=== PATIENT | female | born 1985 | race Caucasian/White ===

== ENCOUNTER 2018-01-21 14:36 | Emergency (ER) | payer OTHER ==
[2018-01-21 15:34] LABS: Absolute Lymphocytes (CBC) 1.8 K/uL (0.7-4.9); Absolute Monocytes 0.7 K/uL (0.1-1.3); Absolute Neutrophil 3.4 K/uL (1.8-8.0); Basophils % 0.7 % (0-1.3); Eosinophils % 6.9 % (0-4.4); Hematocrit 44.2 % (36.0-45.0); Lymphocytes % 27.8 % (15.3-44.8); MCH 29.7 pg (27.0-35.0); MCV 88.4 fL (80-100); MPV 8.4 fL (7.6-11.3); Monocytes % 10.8 % (3.3-12.3); RBC Red Blood Cell Count 5.01 M/uL (3.86-4.86)
[2018-01-21 15:45] LABS: Bicarbonate 26 mEq/L (21-31); Glucose Level 93 mg/dL (65-120); Lipase 19 U/L (22-51); Potassium 4.1 mEq/L (3.6-5.0); Sodium Level 134 mEq/L (135-145)
[2018-01-21 15:51] LABS: ALT/SGPT 14 IU/L (10-60); AST/SGOT 15 IU/L (10-42); Albumin 3.5 g/dL (3.2-5.5); Alkaline Phosphatase 41 IU/L (42-121); BUN Blood Urea Nitrogen 11 mg/dL (6-20); Bilirubin Direct 0.1 mg/dL (0-0.2); Bilirubin Total 0.7 mg/dL (0.3-1.2); Glomerular Filtration Rate > 90 mL/min (=/>90); Protein, Total 7.9 g/dL (6.0-8.3)
[2018-01-21 16:15] LABS: Urine Bacteria <20 /HPF (<20); Urine Culture Reflex Order NOT NEEDED; Urine RBC <5 /HPF (NONE SEEN)
[2018-01-21 16:35] LABS: Urine Blood NEGATIVE (NEG); Urine Glucose NEGATIVE (NEG); Urine Protein NEGATIVE (NEG); Urine Specific Gravity 1.015 (1.005-1.030)
--- NOTE | 2018-01-21 17:20 | RAD REPORT ---
EXAM DESCRIPTION: CT - Abdomen Pelvis W Contrast - 01/21/2018 5:08 pm CLINICAL HISTORY: Abdominal pain/generalized abdominal pain with nausea. COMPARISON: March 2017 TECHNIQUE: Computed axial tomography of the abdomen pelvis was obtained. 100 cc Isovue-300 was admin istered intravenously. Oral contrast was not requested which limits evaluation of bowel. All CT scans are performed using dose optimization technique as appropriate and may include automated exposure control or mA/KV adjustment according to patient size. FINDINGS: The liver, spleen, pancreas, adrenal and kidneys appear unremarkable. A small right renal cyst is unchanged. There is no evidence of diverticulitis. The appendix has been removed. A 26 millimeter left ovarian cyst is present without significant free-fluid . A mildly dilated loop of jejunum is present. Additionally there is fluid within nondilated small leonel l IMPRESSION: A 26 millimeter left ovarian cyst is present without significant free-fluid A mildly dilated loop of jejunum is present. Additionally there is fluid within nondilated small leonel l. This may indicate an enteritis
--- NOTE | 2018-01-21 17:38 | ER ---
Nurse's Notes [facility] Name: Dawit Conroy Age: 33 yrs Sex: Female : 1985 Arrival Date: 01/21/2018 Time: 14:40 Bed 24 Private MD: Jaiden Menard E Diagnosis: Unspecified ovarian cysts;Viral gastroenteritis Presentation: 01/21 14:46 Presenting complaint: Patient states: i thought i had a heat rash last night; today i hj fell light headed; my tummy hurts; reports nausea;. Transition of care: patient was not received from another setting of care. Onset of symptoms was January 21, 2018. Care prior to arrival: None. 14:46 Method Of Arrival: Ambulatory hj 14:46 Acuity: INOCENCIO 3 hj Triage Assessment: 14:48 General: Appears in no apparent distress. uncomfortable, Behavior is calm, cooperative, hj appropriate for age. Pain: Complains of pain in abdomen. GI: Reports lower abdominal pain, nausea, vomiting. 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 Nutritional screening: No deficits noted. kb1 Tuberculosis screening: No symptoms or risk factors identified. Fall Risk IV access (20 points). Assessment: 14:49 GI: Bowel sounds present X 4 quads. Abd is soft Abdomen is tender to palpation. hj 15:10 General: Appears in no apparent distress. Behavior is calm, cooperative. Pain: kb1 Complains of pain in right upper quadrant and right lower quadrant. Neuro: Level of Consciousness is awake, alert, obeys commands, Oriented to person, place, time, situation. Cardiovascular: Patient's skin is warm and dry. Respiratory: Airway is patent. GI: Abdomen is round Bowel sounds present X 4 quads. Abd is soft Abdomen is tender to palpation in right upper quadrant and right lower quadrant Reports nausea. : No signs and/or symptoms were reported regarding the genitourinary system. 15:55 Reassessment: Patient appears in no apparent distress at this time. Patient and/or kb1 family updated on plan of care and expected duration. Pain level reassessed. Patient is alert, oriented x 3, equal unlabored respirations, skin warm/dry/pink. Reports having a sharp pain shoot through right side of abdomen. 16:40 Reassessment: Patient appears in no apparent distress at this time. Patient and/or kb1 family updated on plan of care and expected duration. Pain level reassessed. Patient is alert, oriented x 3, equal unlabored respirations, skin warm/dry/pink. 17:27 Reassessment: Patient appears in no apparent distress at this time. Patient and/or kb1 family updated on plan of care and expected duration. Pain level reassessed. Patient is alert, oriented x 3, equal unlabored respirations, skin warm/dry/pink. 18:27 Reassessment: Patient appears in no apparent distress at this time. Patient and/or kb1 family updated on plan of care and expected duration. Pain level reassessed. Patient is alert, oriented x 3, equal unlabored respirations, skin warm/dry/pink. Patient states feeling better. Vital Signs: 14:49 BP 131 / 98; Pulse 66; Resp 18; Temp 97.6(TE); Pulse Ox 100% on R/A; Weight 97.98 kg; Height 5 ft. 4 in. (162.56 cm); Pain 7/10; 15:56 BP 122 / 78; Pulse 85; Resp 18; Pulse Ox 95% on R/A; kb1 17:27 BP 124 / 90; Pulse 58; Resp 18; Pulse Ox 97% ; kb1 18:28 BP 126 / 73; Pulse 74; Resp 18; Pulse Ox 98% on R/A; kb1 14:49 Body Mass Index 37.08 (97.98 kg, 162.56 cm) ED Course: 14:40 Patient arrived in ED. rg4 14:40 aJiden Menard MD is Private Physician. rg4 14:47 Triage completed. 14:49 Arm band placed on left wrist. 15:01 Brown, Юлия, RN is Primary Nurse. kb1 15:06 Anirudh Kohler, SAMEER is PHCP. pm1 15:06 Lowell Reynolds MD is Attending Physician. pm1 15:10 Patient has correct armband on for positive identification. Placed in gown. Bed in low kb1 position. Call light in reach. Side rails up X 1. Pulse ox on. NIBP on. Warm blanket given. Pillow given. 15:10 No provider procedures requiring assistance completed. Inserted saline lock: 20 gauge kb1 in right antecubital area, using aseptic technique. Blood collected. 15:51 Urine collected: clean catch specimen. kb1 17:04 Patient moved to ND via wheelchair. nj 17:08 CT completed. Patient tolerated procedure well. Patient moved back from ND. nj 17:08 CT Abd/Pelvis - W/Contrast: IV contrast only In Process Unspecified. EDMS 17:36 Jaiden Menard MD is Referral Physician. pm1 18:29 IV discontinued, intact, bleeding controlled, No redness/swelling at site. Pressure kb1 dressing applied. Administered Medications: 18:05 Drug: Zofran 4 mg Route: IVP; Site: right antecubital; kb1 18:26 Follow up: Response: Nausea is decreased kb1 18:05 Drug: Bentyl 20 mg Route: PO; kb1 18:26 Follow up: Response: No adverse reaction kb1 Outcome: 17:37 Discharge ordered by . pm1 18:29 Discharged to home ambulatory, with family. kb1 18:29 Condition: stable 18:29 Discharge instructions given to patient, Instructed on discharge instructions, follow up and referral plans. medication usage, Demonstrated understanding of instructions, follow-up care, medications, Prescriptions given X 2. 18:31 Patient left the ED. kb1 Signatures: Dispatcher [employer] EDMS Tyrone Hernandez RN RN Anirudh Kohler, SAMEER DOT ETCHER pm1 Juanita Martin4 Geovanni Edouard Kristina, RN RN kb1
--- NOTE | 2018-01-21 17:38 | EDPHYS ---
Physician Documentation [facility] Name: Dawit Conroy Age: 33 yrs Sex: Female : 1985 Arrival Date: 01/21/2018 Time: 14:40 Bed 24 Private MD: Jaiden Menard E ED Physician Lowell Reynolds HPI: 01/21 16:00 This 33 yrs old Female presents to ER via Ambulatory with complaints of pm1 Abdominal Pain, LOW ABD PAIN. 16:00 The patient presents with abdominal pain in the lower abdomen. Onset: The pm1 symptoms/episode began/occurred this morning. The symptoms do not radiate. Associated signs and symptoms: Pertinent positives: nausea, Pertinent negatives: chest pain, diarrhea, dysuria, fever, shortness of breath. The symptoms are described as crampy. Modifying factors: The symptoms are alleviated by nothing, the symptoms are aggravated by nothing. Severity of pain: in the emergency department the pain is actually worse. 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 method hj Historical: - Allergies: 14:48 Morphine; tachycardia; hj 14:48 ROSANNE 28; increased K level; hj - Home Meds: 14:48 levothyroxine 100 mcg oral tab 1 tab once daily [Active]; metformin 500 mg Oral tab 1 hj tab 2 times per day [Active]; - PMHx: 14:48 Diabetes - NIDDM; Hypothyroidism; legally blind; PCOS; PTSD; seizures (childhood); hj - PSHx: 14:48 Appendectomy; D \T\ C; hj ROS: 16:00 Constitutional: Negative for fever, chills, and weight loss, Eyes: Negative for injury, pm1 pain, redness, and discharge, ENT: Negative for injury, pain, and discharge, Neck: Negative for injury, pain, and swelling, Cardiovascular: Negative for chest pain, palpitations, and edema, Respiratory: Negative for shortness of breath, cough, wheezing, and pleuritic chest pain. 16:00 Back: Negative for injury and pain, : Negative for injury, bleeding, discharge, and swelling, MS/Extremity: Negative for injury and deformity, Skin: Negative for injury, rash, and discoloration, Neuro: Negative for headache, weakness, numbness, tingling, and seizure. 16:00 Abdomen/GI: Positive for abdominal pain, nausea, Negative for vomiting, diarrhea. Exam: 16:00 Constitutional: This is a well developed, well nourished patient who is awake, alert, pm1 and in no acute distress. Head/Face: Normocephalic, atraumatic. Eyes: Pupils equal round and reactive to light, extra-ocular motions intact. Lids and lashes normal. Conjunctiva and sclera are non-icteric and not injected. Cornea within normal limits. Periorbital areas with no swelling, redness, or edema. ENT: Nares patent. No nasal discharge, no septal abnormalities noted. Tympanic membranes are normal and external auditory canals are clear. Oropharynx with no redness, swelling, or masses, exudates, or evidence of obstruction, uvula midline. Mucous membranes moist. Neck: Trachea midline, no thyromegaly or masses palpated, and no cervical lymphadenopathy. Supple, full range of motion without nuchal rigidity, or vertebral point tenderness. No Meningismus. Chest/axilla: Normal chest wall appearance and motion. Nontender with no deformity. No lesions are appreciated. Cardiovascular: Regular rate and rhythm with a normal S1 and S2. No gallops, murmurs, or rubs. Normal PMI, no JVD. No pulse deficits. Respiratory: Lungs have equal breath sounds bilaterally, clear to auscultation and percussion. No rales, rhonchi or wheezes noted. No increased work of breathing, no retractions or nasal flaring. 16:00 Back: No spinal tenderness. No costovertebral tenderness. Full range of motion. Skin: Warm, dry with normal turgor. Normal color with no rashes, no lesions, and no evidence of cellulitis. MS/ Extremity: Pulses equal, no cyanosis. Neurovascular intact. Full, normal range of motion. 16:00 Abdomen/GI: Inspection: abdomen appears normal, obese Bowel sounds: normal, Palpation: soft, mild abdominal tenderness, in the right lower quadrant and left lower quadrant, mass, is not appreciated, rebound tenderness, is not appreciated. 16:00 Neuro: Orientation: is normal, Mentation: is normal, Motor: moves all fours. Vital Signs: 14:49 BP 131 / 98; Pulse 66; Resp 18; Temp 97.6(TE); Pulse Ox 100% on R/A; Weight 97.98 kg; hj Height 5 ft. 4 in. (162.56 cm); Pain 7/10; 15:56 BP 122 / 78; Pulse 85; Resp 18; Pulse Ox 95% on R/A; kb1 17:27 BP 124 / 90; Pulse 58; Resp 18; Pulse Ox 97% ; kb1 18:28 BP 126 / 73; Pulse 74; Resp 18; Pulse Ox 98% on R/A; kb1 14:49 Body Mass Index 37.08 (97.98 kg, 162.56 cm) MDM: 15:08 Patient medically screened. pm1 17:34 Data reviewed: vital signs. Data interpreted: Pulse oximetry: on room air is 97 %. pm1 Interpretation: normal. Counseling: I had a detailed discussion with the patient and/or guardian regarding: the historical points, exam findings, and any diagnostic results supporting the discharge/admit diagnosis, lab results, radiology results, the need for outpatient follow up, to return to the emergency department if symptoms worsen or persist or if there are any questions or concerns that arise at home. 01/21 15:16 Order name: Basic Metabolic Panel; Complete Time: 17:27 pm1 01/21 15:16 Order name: CBC with Diff; Complete Time: 17:27 pm1 01/21 15:16 Order name: Hepatic Function; Complete Time: 17:27 pm1 01/21 15:16 Order name: Lipase; Complete Time: 17:27 pm1 01/21 15:16 Order name: Urine Microscopic Only; Complete Time: 17:27 pm1 01/21 16:10 Order name: Urine Dipstick--Ancillary (enter results) ag 01/21 15:16 Order name: Urine Test (obtain specimen); Complete Time: 15:51 pm01/21 15:16 Order name: IV Saline Lock; Complete Time: 15:51 pm1 01/21 15:16 Order name: CT Abd/Pelvis - W/Contrast: IV contrast only; Complete Time: 17:27 pm1 01/21 16:10 Order name: Urine --Ancillary (enter results) ag 01/21 16:10 Order name: Urine Dipstick-Ancillary; Complete Time: 17:27 EDMS 01/21 16:10 Order name: Urine --Ancillary; Complete Time: 17:27 EDMS 01/21 15:16 Order name: Labs collected and sent; Complete Time: 15:51 pm1 01/21 15:16 Order name: Urine Dipstick-Ancillary (obtain specimen); Complete Time: 15:51 pm1 Administered Medications: 18:05 Drug: Zofran 4 mg Route: IVP; Site: right antecubital; kb1 18:26 Follow up: Response: Nausea is decreased kb1 18:05 Drug: Bentyl 20 mg Route: PO; kb1 18:26 Follow up: Response: No adverse reaction kb Disposition: 01/22 10:31 Co-signature as Attending Physician, Lowell Reynolds MD I agree with the assessment and melony plan of care. Disposition: 01/21/18 17:37 Discharged to Home. Impression: Unspecified ovarian cysts, Viral gastroenteritis. - Condition is Stable. - Discharge Instructions: Ovarian Cyst, Viral Gastroenteritis. - Prescriptions for Bentyl 20 mg Oral Tablet - take 1 tablet by ORAL route every 6 hours As needed; 20 tablet. Zofran 4 mg Oral Tablet - take 1 tablet by ORAL route every 8 hours As needed; 20 tablet. - Medication Reconciliation Form, Thank You Letter, Antibiotic Education form. - Follow up: Emergency Department; When: As needed; Reason: Worsening of condition. Follow up: Jaiden Menard MD; When: 2 - 3 days; Reason: Recheck today's complaints, Continuance of care, Re-evaluation by your physician. - Problem is new. - Symptoms have improved. Signatures: Dispatcher [employer] Lowell Phillip MD MD cha Joaquin, Henry, RN RN hj Anirudh Kohler, SAMEER MANAGER TRANSPLANT pm1 Юлия Kaufman RN RN kb1
[2018-01-21] MEDS ORDERED: DICYCLOMINE HCL 10 MG CAP ONE (18:18)
[2018-01-21] MEDS ORDERED: ONDANSETRON 4 MG/2 ML VIAL ONE (18:18)
== END 2018-01-21 18:31 | disposition home or self-care (01) ==
LOC: ER 14:36
DX: A08.4 Viral intestinal infection, unspecified (principal); N83.209 Unspecified ovarian cyst, unspecified side; E11.8 Type 2 diabetes mellitus with unspecified complications; E03.9 Hypothyroidism, unspecified; Z88.5 Allergy status to narcotic agent; Z88.8 Allergy status to other drugs, medicaments and biological substances
CPT/HCPCS: 36415; 74177; 80048; 80076; 81003; 81015; 81025; 83690; 85025; 96374; 99284; J2405; Q9967

== ENCOUNTER 2018-05-21 00:04 | Emergency (ER) | payer OTHER ==
[2018-05-21 00:45] LABS: Absolute Lymphocytes (CBC) 2.6 K/uL (0.7-4.9); Absolute Neutrophil 9.8 K/uL (1.8-8.0); Basophils % 0.9 % (0-1.3); Hematocrit 43.9 % (36.0-45.0); Lymphocytes % 17.8 % (15.3-44.8); MCH 30.3 pg (27.0-35.0); MCV 89.8 fL (80-100); MPV 8.7 fL (7.6-11.3); Monocytes % 6.6 % (3.3-12.3); RBC Red Blood Cell Count 4.89 M/uL (3.86-4.86)
[2018-05-21 01:42] LABS: Urine Blood NEGATIVE (NEG); Urine Glucose NEGATIVE (NEG); Urine Protein NEGATIVE (NEG); Urine Specific Gravity 1.025 (1.005-1.030); Urine pH 5.5 (5.0-7.0)
--- NOTE | 2018-05-21 01:53 | EDPHYS ---
Physician Documentation [facility] Name: Dawit Conroy Age: 33 yrs Sex: Female : 1985 Arrival Date: 05/21/2018 Time: 00:05 Bed 14 Private MD: Jaiden Menard E ED Physician Lowell Reynolds HPI: 05/21 00:30 This 33 yrs old Female presents to ER via Ambulatory with complaints of pm1 Possible Seizure, Vaginal Bleeding. 00:30 The patient presents after having a possible seizure episode, generalized shaking pm1 without a postictal period. Character of seizure(s): Loss of consciousness: the patient did not lose consciousness, Motor activity: generalized, Incontinence: none, Apnea: the patient did not experience apnea, Circulation: the patient did not experience evidence of pulse disturbance, Eye movements: the eyes did not move. Seizure onset: just prior to arrival. Context: the seizure(s) was witnessed, by family, , occurred at home, occurred while the patient was lying in bed while arguing. Seizure Hx: Has been referred by PCP to neurologist for evaluation. Patient does not take any medications. Associated injury: The patient did not suffer any apparent associated injury. Current symptoms: Currently, the patient is not experiencing any symptoms. Patient reports possible vaginal bleeding. Patient legally blind so she is not sure if she has any vaginal bleeding. 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 - Social history:: Smoking status: Patient/guardian denies using tobacco, Patient uses alcohol, occasionally. Patient/guardian denies using street drugs. - Ebola Screening: : No symptoms or risks identified at this time. ROS: 00:30 Constitutional: Negative for fever, chills, and weight loss, Eyes: Negative for injury, pm1 pain, redness, and discharge, ENT: Negative for injury, pain, and discharge, Neck: Negative for injury, pain, and swelling, Cardiovascular: Negative for chest pain, palpitations, and edema, Respiratory: Negative for shortness of breath, cough, wheezing, and pleuritic chest pain, Abdomen/GI: Negative for abdominal pain, nausea, vomiting, diarrhea, and constipation, Back: Negative for injury and pain. 00:30 MS/Extremity: Negative for injury and deformity, Skin: Negative for injury, rash, and discoloration. 00:30 : Positive for vaginal bleeding, Negative for urinary symptoms. 00:30 Neuro: Positive for seizure activity, Negative for headache, loss of consciousness. Exam: 00:35 Constitutional: This is a well developed, well nourished patient who is awake, alert, pm1 and in no acute distress. Head/Face: Normocephalic, atraumatic. Eyes: Pupils equal round and reactive to light, extra-ocular motions intact. Lids and lashes normal. Conjunctiva and sclera are non-icteric and not injected. Cornea within normal limits. Periorbital areas with no swelling, redness, or edema. ENT: Nares patent. No nasal discharge, no septal abnormalities noted. Tympanic membranes are normal and external auditory canals are clear. Oropharynx with no redness, swelling, or masses, exudates, or evidence of obstruction, uvula midline. Mucous membranes moist. Neck: Trachea midline, no thyromegaly or masses palpated, and no cervical lymphadenopathy. Supple, full range of motion without nuchal rigidity, or vertebral point tenderness. No Meningismus. Chest/axilla: Normal chest wall appearance and motion. Nontender with no deformity. No lesions are appreciated. Cardiovascular: Regular rate and rhythm with a normal S1 and S2. No gallops, murmurs, or rubs. Normal PMI, no JVD. No pulse deficits. Respiratory: Lungs have equal breath sounds bilaterally, clear to auscultation and percussion. No rales, rhonchi or wheezes noted. No increased work of breathing, no retractions or nasal flaring. Abdomen/GI: Soft, non-tender, with normal bowel sounds. No distension or tympany. No guarding or rebound. No evidence of tenderness throughout. Back: No spinal tenderness. No costovertebral tenderness. Full range of motion. Skin: Warm, dry with normal turgor. Normal color with no rashes, no lesions, and no evidence of cellulitis. MS/ Extremity: Pulses equal, no cyanosis. Neurovascular intact. Full, normal range of motion. 00:35 Neuro: Orientation: is normal, Motor: moves all fours. Vital Signs: 00:25 BP 137 / 92; Pulse 89; Resp 16 S; Temp 98.9(O); Pulse Ox 97% on R/A; Weight 95.25 kg bb (R); Height 5 ft. 4 in. (162.56 cm) (R); Pain 6/10; 01:28 BP 122 / 74; Pulse 64; Resp 16; Pulse Ox 97% on R/A; ak1 00:25 Body Mass Index 36.05 (95.25 kg, 162.56 cm) bb MDM: 00:18 Patient medically screened. pm1 00:36 Data reviewed: vital signs. Data interpreted: Pulse oximetry: on room air is 97 %. pm1 Interpretation: normal. 01:51 Counseling: I had a detailed discussion with the patient and/or guardian regarding: the pm1 historical points, exam findings, and any diagnostic results supporting the discharge/admit diagnosis, lab results, the need for outpatient follow up, to return to the emergency department if symptoms worsen or persist or if there are any questions or concerns that arise at home. 05/21 00:10 Order name: Basic Metabolic Panel; Complete Time: 01:26 pm05/21 00:10 Order name: CBC with Diff; Complete Time: 00:55 pm1 05/21 00:10 Order name: Urine Test (obtain specimen); Complete Time: 00:50 pm1 05/21 00:10 Order name: IV Saline Lock; Complete Time: 00:36 pm05/21 00:32 Order name: Urine Dipstick--Ancillary (enter results); Complete Time: 01:45 ms 05/21 00:32 Order name: Urine --Ancillary (enter results); Complete Time: 01:45 ms 05/21 00:10 Order name: Labs collected and sent; Complete Time: 00:36 pm1 05/21 00:10 Order name: NPO; Complete Time: 00:49 pm1 05/21 00:10 Order name: Urine Dipstick-Ancillary (obtain specimen); Complete Time: 00:49 pm1 Administered Medications: No medications were administered Disposition: 07:32 Co-signature as Attending Physician, Lowell Reynolds MD I agree with the assessment and melony plan of care. Disposition: 05/21/18 01:53 Discharged to Home. Impression: Abnormal uterine and vaginal bleeding, unspecified, Epilepsy and recurrent seizures. - Condition is Stable. - Discharge Instructions: Abnormal Uterine Bleeding, Seizure, Adult, [id number]. - Medication Reconciliation Form, Thank You Letter form. - Follow up: Emergency Department; When: As needed; Reason: Worsening of condition. Follow up: Jaiden Menard MD; When: 2 - 3 days; Reason: Recheck today's complaints, Continuance of care, Re-evaluation by your physician. - Problem is new. - Symptoms have improved. Signatures: Dispatcher [employer] EDHI Lowell Reynolds MD MD cha Ballard, Brenda RN RN bb Therese Tillman RN RN ak1 Anirudh Kohler, APPAREL MANAGER APPAREL MANAGER pm1 Corrections: (The following items were deleted from the chart) 02:17 01:53 05/21/2018 01:53 Discharged to Home. Impression: Abnormal uterine and vaginal ak1 bleeding, unspecified; Epilepsy and recurrent seizures. Condition is Stable. Forms are Medication Reconciliation Form, Thank You Letter, Antibiotic Education, Prescription Opioid Use. Follow up: Emergency Department; When: As needed; Reason: Worsening of condition. Follow up: Jaiden Menard; When: 2 - 3 days; Reason: Recheck today's complaints, Continuance of care, Re-evaluation by your physician. Problem is new. Symptoms have improved. pm1
--- NOTE | 2018-05-21 01:53 | ER ---
Nurse's Notes [facility] Name: Dawit Conroy Age: 33 yrs Sex: Female : 1985 Arrival Date: 05/21/2018 Time: 00:05 Bed 14 Private MD: Jaiden Menard E Diagnosis: Abnormal uterine and vaginal bleeding, unspecified;Epilepsy and recurrent seizures Presentation: 05/21 00:19 Presenting complaint: Patient states: she is having seizure like activity that she has bb noticed usually happens 1 to 2 days prior to her starting her menstrual cycle since February pt states she had a seizure tonight witnessed by her lasting approx 6 to 7 minutes pt was responsive upon awakening and was aware of her surroundings and her family. Pt states she had seizures when she was younger and used to take Depakote but has not taken it since 2007. Transition of care: patient was not received from another setting of care. Onset of symptoms was February 2018. Risk Assessment: Do you want to hurt yourself or someone else? Patient reports no desire to harm self or others. Initial Sepsis Screen: Does the patient meet any 2 criteria? No. Patient's initial sepsis screen is negative. Does the patient have a suspected source of infection? No. Patient's initial sepsis screen is negative. Care prior to arrival: None. 00:19 Method Of Arrival: Ambulatory bb 00:19 Acuity: INOCENCIO 3 bb 00:27 Note pt c/o generalized body pain 03/28. 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 - Social history:: Smoking status: Patient/guardian denies using tobacco, Patient uses alcohol, occasionally. Patient/guardian denies using street drugs. - Ebola Screening: : No symptoms or risks identified at this time. Screenin:32 Abuse screen: Denies threats or abuse. Denies injuries from another. Nutritional ak1 screening: No deficits noted. Tuberculosis screening: No symptoms or risk factors identified. Fall Risk None identified. Assessment: 00:34 General: Appears in no apparent distress. Behavior is calm, cooperative. Pain: ak1 Complains of pain in "all over body aches". Neuro: Level of Consciousness is awake, alert, obeys commands, Oriented to person, place, time, situation, Casket Inspector are equal bilaterally Moves all extremities. Gait is steady, Speech is normal, Facial symmetry appears normal. Cardiovascular: Rhythm is regular. Respiratory: No deficits noted. GI: No signs and/or symptoms were reported involving the gastrointestinal system. : Reports vaginal bleeding that is. EENT: No signs and/or symptoms were reported regarding the EENT system. Derm: No signs and/or symptoms reported regarding the dermatologic system. Musculoskeletal: No deficits noted. Vital Signs: 00:25 BP 137 / 92; Pulse 89; Resp 16 S; Temp 98.9(O); Pulse Ox 97% on R/A; Weight 95.25 kg bb (R); Height 5 ft. 4 in. (162.56 cm) (R); Pain 6/10; 01:28 BP 122 / 74; Pulse 64; Resp 16; Pulse Ox 97% on R/A; ak1 00:25 Body Mass Index 36.05 (95.25 kg, 162.56 cm) ED Course: 00:05 Patient arrived in ED. es 00:06 Jaiden Menard MD is Private Physician. es 00:09 Anirudh Kohler NP is PHCP. pm1 00:09 Lowell Reynolds MD is Attending Physician. pm1 00:23 Triage completed. bb 00:25 Arm band placed on Patient placed in an exam room, on a stretcher, on pulse oximetry. bb Family accompanied patient. 00:32 Therese Tillman, RN is Primary Nurse. ak1 00:32 Patient has correct armband on for positive identification. Placed in gown. Bed in low ak1 position. Call light in reach. Side rails up X2. Adult w/ patient. Pulse ox on. NIBP on. 00:36 Initial lab(s) drawn, by me, sent to lab. Inserted saline lock: 20 gauge. cb2 01:52 Menard, Jaiden, MD is Referral Physician. pm1 02:16 No provider procedures requiring assistance completed. IV discontinued, intact, ak1 bleeding controlled, No redness/swelling at site. Pressure dressing applied. Administered Medications: No medications were administered Outcome: 01:53 Discharge ordered by . pm1 02:16 Discharged to home ambulatory, with family. ak1 02:16 Condition: good 02:16 Discharge instructions given to patient, family, Instructed on discharge instructions, follow up and referral plans. Demonstrated understanding of instructions, follow-up care. 02:17 Patient left the ED. ak1 Signatures: Iveth Yates Brenda, RN RN bb Therese Tillman RN RN ak1 Anirudh Kohler, [facility] ATTENDANT pm1 Yobani Huertas cb2
== END 2018-05-21 02:17 | disposition home or self-care (01) ==
LOC: ER 00:04
DX: N93.9 Abnormal uterine and vaginal bleeding, unspecified (principal); E03.9 Hypothyroidism, unspecified; E11.9 Type 2 diabetes mellitus without complications; F43.10 Post-traumatic stress disorder, unspecified; Z88.5 Allergy status to narcotic agent; Z88.8 Allergy status to other drugs, medicaments and biological substances
CPT/HCPCS: 36415; 80048; 81003; 81025; 85025; 99283

== ENCOUNTER 2018-09-15 10:16 | Inpatient (IN) | payer OTHER ==
[2018-09-15 11:16] LABS: Absolute Lymphocytes (CBC) 0.9 K/uL (0.7-4.9); Absolute Monocytes 0.4 K/uL (0.1-1.3); Absolute Neutrophil 4.4 K/uL (1.8-8.0); Eosinophils % 1.6 % (0-4.4); Hematocrit 42.4 % (36.0-45.0); Lymphocytes % 15.6 % (15.3-44.8); MCH 30.3 pg (27.0-35.0); MCV 90.8 fL (80-100); Monocytes % 6.2 % (3.3-12.3); RBC Red Blood Cell Count 4.66 M/uL (3.86-4.86)
[2018-09-15] MEDS ORDERED: NA CHLORIDE 0.9% 1,000 ML ONE (11:16)
[2018-09-15 11:23] LABS: Barbiturates NEGATIVE (NEGATIVE); Benzodiazepines NEGATIVE (NEGATIVE); Cocaine NEGATIVE (NEGATIVE); METHAMPHETAM NEGATIVE (NEGATIVE); Methadone NEGATIVE (NEGATIVE); Opiates NEGATIVE (NEGATIVE); Phencyclidine NEGATIVE (NEGATIVE); THC Cannibis NEGATIVE (NEGATIVE)
[2018-09-15 11:28] LABS: Protime INR 0.99
[2018-09-15 11:30] LABS: Urine Blood NEGATIVE (NEG); Urine Glucose NEGATIVE (NEG); Urine Protein NEGATIVE (NEG)
[2018-09-15 11:33] LABS: ALT/SGPT 73 U/L (12-78); AST/SGOT 37 U/L (15-37); Albumin 3.1 g/dL (3.4-5.0); Alkaline Phosphatase 54 U/L (45-117); BUN Blood Urea Nitrogen 8 mg/dL (7-18); Bicarbonate 19 mmol/L (21-32); Bilirubin Direct < 0.1 mg/dL (0-0.2); Bilirubin Total 0.3 mg/dL (0.2-1.0); Glucose Level 146 mg/dL (74-106); Potassium 3.5 mmol/L (3.5-5.1); Protein, Total 7.4 g/dL (6.4-8.2); Sodium Level 140 mmol/L (136-145)
--- NOTE | 2018-09-15 11:45 | EKG ---
Test Date: 2018-09-15 Test Time: 10:36:01 Supervisor Laboratory Animal Facility: [facility] MEASUREMENT RESULTS: Intervals: Rate: 62 VT: 132 QRSD: 94 QT: 402 QTc: 408 Minco: P: 65 VT: 132 QRS: 63 T: 73 INTERPRETIVE STATEMENTS: Normal sinus rhythm with sinus arrhythmia Normal ECG Compared to ECG 05/03/2017 11:24:15 Sinus bradycardia no longer present Electronically Signed On 09-15-18 11:43:57 EXECUTIVE ASST by Al Norton
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
[2018-09-15] MEDS ORDERED: ACETAMINOPHEN 500 MG TAB PO PRN (12:25)
[2018-09-15] MEDS ORDERED: TRAMADOL HCL 50 MG TAB PO PRN (12:25)
[2018-09-15] MEDS ORDERED: ONDANSETRON 4 MG/2 ML VIAL IV PRN (12:25)
[2018-09-15] MEDS ORDERED: LORazepam 2 MG/ML VIAL IV PRN (12:25)
[2018-09-15] MEDS ORDERED: ONDANSETRON 4 MG/2 ML VIAL ONE ×2 (12:40→14:03)
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
[2018-09-15] MEDS: NA CHLORIDE 0.9% 1,000 ML IV SCH ×2 (13:00→23:33)
[2018-09-15] MEDS ORDERED: LORazepam 2 MG/ML VIAL ONE (14:11)
[2018-09-15 14:20] LABS: Thyroid Stimulating Hormone 0.539 uIU/mL (0.360-3.740)
[2018-09-15] MEDS: INSULIN -REGULAR HUMAN 50 UNIT/0.5 ML ML SQ SCH ×2 (16:29→20:36)
[2018-09-15] MEDS: ENOXAPARIN 40 MG/0.4 ML SQ SCH (18:06)
[2018-09-16 05:43] LABS: Absolute Lymphocytes (CBC) 0.9 K/uL (0.7-4.9); Absolute Monocytes 0.6 K/uL (0.1-1.3); Absolute Neutrophil 3.2 K/uL (1.8-8.0); Basophils % 0.5 % (0-1.3); Eosinophils % 2.5 % (0-4.4); Hematocrit 38.7 % (36.0-45.0); Lymphocytes % 18.8 % (15.3-44.8); MCV 90.6 fL (80-100); MPV 10.2 fL (7.6-11.3); Monocytes % 12.8 % (3.3-12.3); RBC Red Blood Cell Count 4.27 M/uL (3.86-4.86)
[2018-09-16] MEDS: PANTOPRAZOLE 40MG TABLET PO SCH (05:43)
[2018-09-16] MEDS: INSULIN -REGULAR HUMAN 50 UNIT/0.5 ML ML SQ SCH ×4 (07:30→19:56)
[2018-09-16] MEDS: FOLIC ACID 1 MG TABLET PO SCH (10:08)
[2018-09-16] MEDS: NA CHLORIDE 0.9% 1,000 ML IV SCH (10:08)
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
[2018-09-16] MEDS: ENOXAPARIN 40 MG/0.4 ML SQ SCH (18:02)
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
[2018-09-17] MEDS: PANTOPRAZOLE 40MG TABLET PO SCH (04:47)
[2018-09-17 04:57] LABS: Absolute Lymphocytes (CBC) 1.2 K/uL (0.7-4.9); Absolute Monocytes 0.5 K/uL (0.1-1.3); Absolute Neutrophil 2.2 K/uL (1.8-8.0); Eosinophils % 4.9 % (0-4.4); Hematocrit 40.2 % (36.0-45.0); Lymphocytes % 28.9 % (15.3-44.8); MCH 30.5 pg (27.0-35.0); MCV 89.8 fL (80-100); MPV 9.8 fL (7.6-11.3); RBC Red Blood Cell Count 4.48 M/uL (3.86-4.86)
[2018-09-17 05:04] LABS: Magnesium 2.2 mg/dL (1.8-2.4); Potassium 3.7 mmol/L (3.5-5.1)
[2018-09-17] MEDS ORDERED: POTASSIUM CL SA 10 MEQ TAB PO ONE (05:43)
[2018-09-17] MEDS ORDERED: LEVOTHYROXINE SOD 0.1 MG TAB PO SCH (06:00)
[2018-09-17] MEDS: INSULIN -REGULAR HUMAN 50 UNIT/0.5 ML ML SQ SCH ×4 (07:30→23:15)
[2018-09-17] MEDS: FOLIC ACID 1 MG TABLET PO SCH (08:44)
[2018-09-17] MEDS ORDERED: NORGESTIMATE PO SCH (09:00)
[2018-09-17] MEDS ORDERED: ETHINYL ESTRADIOL PO SCH (09:00)
[2018-09-17] MEDS ORDERED: ZONISAMIDE 100 MG PO SCH (09:00)
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
[2018-09-17] MEDS: ENOXAPARIN 40 MG/0.4 ML SQ SCH (16:48)
[2018-09-18] MEDS ORDERED: SOD CHLORIDE 0.65% NASAL SPRAY NAS PRN (01:35)
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
== END 2018-09-18 04:09 | DRG 918 ==
LOC: ER 10:16 → ERHOLD 12:20 → 3RD-ICU 14:11
PROVIDERS: ADMIT Family Medicine; ATTEND Family Medicine
DX: T42.6X2A Poisoning by other antiepileptic and sedative-hypnotic drugs, intentional self-harm, initial encounter (principal); F32.2 Major depressive disorder, single episode, severe without psychotic features; Y92.89 Other specified places as the place of occurrence of the external cause; E11.9 Type 2 diabetes mellitus without complications; G40.909 Epilepsy, unspecified, not intractable, without status epilepticus; E03.9 Hypothyroidism, unspecified; F41.9 Anxiety disorder, unspecified
CPT/HCPCS: 36415; 80048; 80076; 80307; 80320; 80329; 81003; 81025; 82962; 83036; 83735; 84439; 84443; 85025; 85610; 85730; 93005; 96361; 96374; 96375; 99285; J1650; J2405; J7030

== ENCOUNTER 2019-01-15 13:09 | Emergency (ER) | payer OTHER ==
[2019-01-15 13:58] LABS: Urine Blood 2+ (NEG); Urine Glucose NEGATIVE (NEG); Urine Protein 1+ (NEG); Urine pH 7.5 (5.0-7.0)
[2019-01-15 14:03] LABS: Urine Bacteria <20 /HPF (<20); Urine Culture Reflex Order NOT NEEDED; Urine Mucus LIGHT /HPF (NONE SEEN); Urine RBC >50 /HPF (NONE SEEN)
[2019-01-15 14:33] LABS: Absolute Lymphocytes (CBC) 1.5 K/uL (0.7-4.9); Absolute Monocytes 0.5 K/uL (0.1-1.3); Absolute Neutrophil 3.3 K/uL (1.8-8.0); Basophils % 0.7 % (0-1.3); Eosinophils % 5.6 % (0-4.4); Hematocrit 39.9 % (36.0-45.0); Lymphocytes % 26.9 % (15.3-44.8); MPV 8.2 fL (7.6-11.3); Monocytes % 9.6 % (3.3-12.3); RBC Red Blood Cell Count 4.47 M/uL (3.86-4.86)
[2019-01-15 14:47] LABS: Potassium 4.2 mmol/L (3.5-5.1)
--- NOTE | 2019-01-15 14:51 | EDPHYS ---
Physician Documentation [facility] Name: Dawit Conroy Age: 34 yrs Sex: Female : 1985 Arrival Date: 01/15/2019 Time: 13:12 Bed 5 Private MD: Jaiden Menard E ED Physician Gonzalo Ling HPI: 01/15 13:38 This 34 yrs old Female presents to ER via Ambulatory with complaints of rn Vaginal Bleeding. 13:38 The patient presents with vaginal bleeding that is light. Onset: The symptoms/episode rn began/occurred 3 day(s) ago. Modifying factors: The symptoms are alleviated by nothing, the symptoms are aggravated by nothing. Severity of symptoms: At their worst the symptoms were mild, in the emergency department the symptoms are unchanged. The patient has not experienced similar symptoms in the past. Reports just finished her cycle 2 weeks ago, has been bleeding again for last 3 days, about same as normal period, reports usually very regular, doesn't think she is , hasn't had sex in a month. No vaginal discharge. No trauma. Does have known fibroids and endometriosis. . 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 - Social history:: Smoking status: Patient/guardian denies using tobacco. - Ebola Screening: : No symptoms or risks identified at this time. - Family history:: not pertinent. - Hospitalizations: : No recent hospitalization is reported. ROS: 13:38 Constitutional: Negative for fever, chills, and weight loss, Eyes: Negative for injury, rn pain, redness, and discharge, Neck: Negative for injury, pain, and swelling, Cardiovascular: Negative for chest pain, palpitations, and edema, Respiratory: Negative for shortness of breath, cough, wheezing, and pleuritic chest pain, Abdomen/GI: Negative for abdominal pain, nausea, vomiting, diarrhea, and constipation, : + vaginal bleeding MS/Extremity: Negative for injury and deformity, Skin: Negative for injury, rash, and discoloration, Neuro: Negative for headache, weakness, numbness, tingling, and seizure. Exam: 13:38 Constitutional: This is a well developed, well nourished patient who is awake, alert, rn and in no acute distress. Ambulatory to room and bathroom without difficulty/assistance. Head/Face: Normocephalic, atraumatic. Eyes: Normal conjunctivae ENT: MMM Abdomen/GI: soft, non-tender Skin: Warm, dry MS/ Extremity: Pulses equal, no cyanosis. Neuro: Awake and alert, GCS 15, oriented to person, place, time, and situation. Cranial nerves II-XII grossly intact. Motor strength 5/5 in all extremities. Sensory grossly intact. Cerebellar exam normal. Normal gait. Vital Signs: 13:17 BP 145 / 97; Pulse 77; Resp 18; Temp 98.6; Pulse Ox 98% on R/A; Weight 90.72 kg; Height la1 5 ft. 5 in. (165.10 cm); 14:20 BP 145 / 98; Pulse 67; Resp 16 S; Pulse Ox 96% on R/A; aa5 13:17 Body Mass Index 33.28 (90.72 kg, 165.10 cm) la1 MDM: 13:22 Patient medically screened. rn 14:50 Differential diagnosis: dysfunctional uterine bleeding, dysmenorrhea, endometriosis, rn menometrorrhagia, menorrhea, uterine fibroids, urinary tract infection, . Data reviewed: vital signs, nurses notes, lab test result(s), and as a result, I will discharge patient. Counseling: I had a detailed discussion with the patient and/or guardian regarding: the historical points, exam findings, and any diagnostic results supporting the discharge/admit diagnosis, lab results, the need for outpatient follow up, to return to the emergency department if symptoms worsen or persist or if there are any questions or concerns that arise at home. Special discussion: I discussed with the patient/guardian in detail that at this point there is no indication for admission to the hospital. It is understood, however, that if the symptoms persist or worsen the patient needs to return immediately for re-evaluation. Based on the history and exam findings, there is no indication for further emergent testing or inpatient evaluation. I discussed with the patient/guardian the need to see the OB Gyne specialist for further evaluation of the symptoms. 01/15 13:22 Order name: Urine Microscopic Only; Complete Time: 14:22 rn 01/15 13:47 Order name: Urine Dipstick--Ancillary (enter results); Complete Time: 14:22 eb 01/15 13:22 Order name: Urine Dipstick-Ancillary (obtain specimen); Complete Time: 13:44 rn 01/15 13:47 Order name: Urine --Ancillary (enter results); Complete Time: 14:22 eb 01/15 13:51 Order name: CBC with Diff; Complete Time: 14:50 rn 01/15 13:51 Order name: Basic Metabolic Panel; Complete Time: 14:50 rn 01/15 13:22 Order name: Urine Test (obtain specimen); Complete Time: 13:44 rn 01/15 13:51 Order name: IV Start; Complete Time: 14:25 rn Administered Medications: No medications were administered Disposition: 01/15/19 14:51 Discharged to Home. Impression: Abnormal uterine and vaginal bleeding, unspecified. - Condition is Stable. - Discharge Instructions: Menorrhagia, Metrorrhagia. - Medication Reconciliation Form, Thank You Letter, Antibiotic Education, Prescription Opioid Use form. - Follow up: Private Physician; When: As needed; Reason: Recheck today's complaints, Re-evaluation by your physician. - Problem is new. - Symptoms have improved. Signatures: Dispatcher [employer] Derik Valentin, MACHINE MAINTENANCE TECHNICIAN MACHINE MAINTENANCE TECHNICIAN Gonzalo Rainey MD MD rn Attema, Lee, RN RN la1 Corrections: (The following items were deleted from the chart) 15:14 14:51 01/15/2019 14:51 Discharged to Home. Impression: Abnormal uterine and vaginal em bleeding, unspecified. Condition is Stable. Forms are Medication Reconciliation Form, Thank You Letter, Antibiotic Education, Prescription Opioid Use. Follow up: Private Physician; When: As needed; Reason: Recheck today's complaints, Re-evaluation by your physician. Problem is new. Symptoms have improved. rn
--- NOTE | 2019-01-15 14:51 | ER ---
Nurse's Notes [facility] Name: Dawit Conroy Age: 34 yrs Sex: Female : 1985 Arrival Date: 01/15/2019 Time: 13:12 Bed 5 Private MD: Jaiden Menard E Diagnosis: Abnormal uterine and vaginal bleeding, unspecified Presentation: 01/15 13:16 Presenting complaint: Patient states: Had my menstrual cycle on 12/21/2018 and started la1 having vaginal bleeding about 2 days ago with lower abd pain. Transition of care: patient was not received from another setting of care. Onset of symptoms was January 15, 2019. Risk Assessment: Do you want to hurt yourself or someone else? Patient reports no desire to harm self or others. Initial Sepsis Screen: Does the patient meet any 2 criteria? No. Patient's initial sepsis screen is negative. Does the patient have a suspected source of infection? No. Patient's initial sepsis screen is negative. Care prior to arrival: None. 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 - Social history:: Smoking status: Patient/guardian denies using tobacco. - Ebola Screening: : No symptoms or risks identified at this time. - Family history:: not pertinent. - Hospitalizations: : No recent hospitalization is reported. Screenin:20 Abuse screen: Denies threats or abuse. Nutritional screening: No deficits noted. aa5 Tuberculosis screening: No symptoms or risk factors identified. Fall Risk None identified. Assessment: 13:20 General: Appears comfortable, Behavior is calm, cooperative. Pain: Complains of pain in aa5 right lower quadrant and left lower quadrant Pain does not radiate. Pain currently is 7 out of 10 on a pain scale. Quality of pain is described as crampy, Is intermittent. Neuro: Level of Consciousness is awake, alert, obeys commands, Oriented to person, place, time, situation. Cardiovascular: No deficits noted. Respiratory: Airway is patent Respiratory effort is even, unlabored, Respiratory pattern is regular, symmetrical. GI: Abdomen is round non-distended, Bowel sounds present X 4 quads. Abd is soft and non tender X 4 quads. : Reports vaginal bleeding that is bright red, moderate flow, Denies burning with urination, urinary frequency, urgency. EENT: No signs and/or symptoms were reported regarding the EENT system. Derm: Skin is pink, warm \T\ dry. Musculoskeletal: Range of motion: intact in all extremities. 14:20 Reassessment: Patient and/or family updated on plan of care and expected duration. Pain aa5 level reassessed. Patient is alert, oriented x 3, equal unlabored respirations, skin warm/dry/pink. Vital Signs: 13:17 BP 145 / 97; Pulse 77; Resp 18; Temp 98.6; Pulse Ox 98% on R/A; Weight 90.72 kg; Height la1 5 ft. 5 in. (165.10 cm); 14:20 BP 145 / 98; Pulse 67; Resp 16 S; Pulse Ox 96% on R/A; aa5 13:17 Body Mass Index 33.28 (90.72 kg, 165.10 cm) la1 ED Course: 13:12 Patient arrived in ED. mr 13:12 Jaiden Menard MD is Private Physician. mr 13:17 Triage completed. la1 13:18 Arm band placed on left wrist. la1 13:19 Linda Obregon, RN is Primary Nurse. aa5 13:20 Patient has correct armband on for positive identification. Placed in gown. Bed in low aa5 position. Call light in reach. Side rails up X 1. 13:22 Gonzalo Ling MD is Attending Physician. rn 14:20 No provider procedures requiring assistance completed. Initial lab(s) drawn, by zak gama sent to lab. Inserted saline lock: 22 gauge in right antecubital area, using aseptic technique. Blood collected. 14:59 IV discontinued, intact, bleeding controlled, No redness/swelling at site. Pressure hj dressing applied. Administered Medications: No medications were administered Outcome: 14:51 Discharge ordered by . rn 14:59 Discharged to home ambulatory, with family. hj 14:59 Condition: stable 14:59 Discharge instructions given to patient, family, Instructed on discharge instructions, follow up and referral plans. Demonstrated understanding of instructions, follow-up care. 15:14 Patient left the ED. em Signatures: Mili Smith mr Hoemro, Derik, OFFICIAL GREETER OFFICIAL GREETER em Gonzalo Ling MD MD rn Calderon, Audri, RN RN aa5 Felipe Sweeney RN RN la1 Tyrone Hernandez RN RN
== END 2019-01-15 15:14 | disposition home or self-care (01) ==
LOC: ER 13:09
DX: N93.9 Abnormal uterine and vaginal bleeding, unspecified (principal); Z88.5 Allergy status to narcotic agent; Z88.8 Allergy status to other drugs, medicaments and biological substances; Z91.040 Latex allergy status; Z91.048 Other nonmedicinal substance allergy status
CPT/HCPCS: 36415; 80048; 81003; 81015; 81025; 85025; 99283

== ENCOUNTER 2019-12-24 21:28 | Emergency (ER) | payer OTHER ==
--- OUTSIDE RECORDS SUMMARY | 2019-12-24 21:30 | XMS REPORT ---
:1985 [facility] [place] [address] Care Team Providers Name Role Phone Unavailable Unavailable Unavailable Problems This patient has no known problems. Allergies, Adverse Reactions, Alerts This patient has no known allergies or adverse reactions. Medications This patient has no known medications.
--- OUTSIDE RECORDS SUMMARY | 2019-12-24 21:31 | XMS REPORT | Summary of Care ---
:1985 Author Organization [facility] Address [address] [place] [address] Care Team Providers Name Role Phone JairJohn patiño Primary Care Provider Encounter Details Date Type Department Care Team Description 12/12/2019 Letter (Out) [facility], [facility] [address] [facility], 6th [place] [address] Allergies Active Allergy Reactions Severity Noted Date Comments Morphine Hypertension 04/27/2017 Drospirenone-Ethinyl Unknown - See comments 06/10/2018 Elevates potassium Estradiol per patient documented as of this encounter (statuses as of 12/12/2019) Medications Medication Sig Dispensed Refills Start Date End Date Status naproxen 500 mg tablet Take 500 mg by 0 Active mouth 3 (three) times daily. Cholecalciferol, Vitamin Take by mouth. 0 Active D3, (VITAMIN D3) 2,000 unit capsule prazosin 1 mg capsule 0 09/25/2018 Active norgestimate-ethinyl Take 1 tablet by 1 Package 11 10/18/2018 Active estradiol 0.25-35 mg-mcg mouth daily. per tablet SERTraline 50 mg Take 1 tablet by 30 tablet 6 10/28/2019 Active tabletIndications: PTSD mouth daily. (post-traumatic stress disorder) LEVOTHYROXINE 88 mcg TAKE ONE TABLET 30 tablet 2 12/12/2019 Active tabletIndications: BY MOUTH EVERY Primary hypothyroidism MORNING documented as of this encounter (statuses as of 12/12/2019) Active Problems Problem Noted Date Obesity (BMI 30-39.9) 11/06/2019 PTSD (post-traumatic stress disorder) 10/28/2019 Psychogenic nonepileptic seizure 10/28/2019 Seizures 10/24/2019 ASCUS of cervix with negative high risk HPV 02/01/2019 Overview: 01/19/19 - ASCUS pap smear with negative HPV. Repeat pap smear with co-testing in 3 years. Hydrosalpinx 01/26/2019 Overview: 01/26/19 - US revealed a uterus measuring 6.3 x 3.4 x 4.8 cm, an ES of 1.4 mm, b /l ovarian follicles c/w possible PCOS, right hydrosalpinx with a large unilocular paraovarian cyst measuring 4.4 x 2.6 x 3.4 cm. Uses oral contraception 01/19/2019 Overview: Sprintec 35 mcg started 06/10/18 Grand mal seizure disorder 06/10/2018 History of PCOS 06/10/2018 Overview: 01/26/19 - US revealed a uterus measuring 6.3 x 3.4 x 4.8 cm, an ES of 1.4 mm, b/l ovarian follicles c/w possible PCOS, right hydrosalpinx with a large unilocular paraovarian cyst measuring 4.4 x 2.6 x 3.4 cm. Class 2 obesity due to excess calories without serious comorbidity with 2017 body mass index (BMI) of 37.0 to 37.9 in adult Primary hypothyroidism 04/27/2017 documented as of this encounter (statuses as of 12/12/2019) Social History Tobacco Use Types Packs/Day Years Used Date Never Smoker Smokeless Tobacco: Never Used Alcohol Use Drinks/Week oz/Week Comments No Sex Assigned at Date Recorded Not on file Job Start Date Occupation Industry Not on file Not on file Not on file Travel History Travel Start Travel End No recent travel history available. 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 Visit Endocrinology Diabetes & Michelle Isaacs RD Metabolism [address] [place] [address] [phone] Health Maintenance Due Date Last Done Comments VARICELLA VACCINES (1 of 2 - 1987 2-dose childhood series) DTaP,Tdap,and Td Vaccines (1 - 1997 Tdap) INFLUENZA VACCINE (#1) 2019 PAP SMEAR 01/19/2022 01/19/2019 PNEUMOCOCCAL 0-64 YEARS COMBINED Aged Out No longer eligible based on SERIES patient's age to complete this topic documented as of this encounter Results Not on filedocumented in this encounter Insurance Payer Benefit Plan / Subscriber ID Effective Dates Phone Address Type Group [facility] xxxxxxxxx 2017-Present Medicaid COMM PLAN - PLUS MANAGED MEDICAID documented as of this encounter
--- OUTSIDE RECORDS SUMMARY | 2019-12-24 21:31 | XMS REPORT | Summary of Care ---
:1985 Author Organization [facility] Address [address] [place] [address] Care Team Providers Name Role Phone JairJohn patiño Primary Care Provider Reason for Visit Reason Comments OBESITY (Routine) Status Reason Specialty Diagnoses / Referred By Referred To Procedures Contact Contact Closed Dietary and Diagnoses Metabolic syndrome X Familial hypercholesteremia Impaired glucose tolerance Keira Atwood Nutritional Service Procedures CONSULT/REFERRAL NUTRITION MD Yumiko [address] [place] [id number] Encounter Details Date Type Department Care Team Description 05/12/2019 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 Visit [facility] Ferny, Michelle, Class 2 obesity due to excess calories without serious comorbidity with body mass index (BMI) of 37.0 to 37.9 in adult (Primary Dx); Endocrinology- RD Weight gain; [address] History of PCOS; Professional Office [facility] Primary hypothyroidism [address] [address] [facility] [address] [place] [phone] [address] (Fax) [phone] Allergies Active Allergy Reactions Severity Noted Date Comments Morphine Hypertension 04/27/2017 Drospirenone-Ethinyl Unknown - See comments 06/10/2018 Elevates potassium Estradiol per patient documented as of this encounter (statuses as of 05/12/2019) Medications Medication Sig Dispensed Refills Start Date End Date Status naproxen 500 mg tablet Take 500 mg by 0 Active mouth 3 (three) times daily. Cholecalciferol, Vitamin Take by mouth. 0 Active D3, (VITAMIN D3) 2,000 unit capsule prazosin 1 mg capsule 0 09/25/2018 Active SERTraline 50 mg tablet 0 09/25/2018 Active norgestimate-ethinyl Take 1 tablet by 1 Package 11 10/18/2018 Active estradiol 0.25-35 mg-mcg mouth daily. per tablet levothyroxine 88 mcg Take 1 tablet by 30 tablet 2 01/17/2019 Active tablet mouth every morning. OXcarbazepine 300 mg Take 1 tablet by 75 tablet 2 04/15/2019 Active tabletIndications: mouth 2 (two) Frequent seizures times daily. Also take 1/2 of tablet twice per day. documented as of this encounter (statuses as of 05/12/2019) Active Problems Problem Noted Date ASCUS of cervix with negative high risk [...] as of this encounter (statuses as of 05/12/2019) Social History Tobacco Use Types Packs/Day Years Used Date Never Smoker Smokeless Tobacco: Never Used Alcohol Use Drinks/Week oz/Week Comments No Sex Assigned at Date Recorded Not on file Job Start Date Occupation Industry Not on file Not on file Not on file Travel History Travel Start Travel End No recent travel history available. documented as of this encounter Last Filed Vital Signs Vital Sign Reading Time Taken Comments Blood Pressure - - Pulse - - Temperature - - Respiratory Rate - - Oxygen Saturation - - Inhaled Oxygen Concentration - - Weight 92.1 kg (203 lb) 05/12/2019 9:51 AM CDT Height - - Body Mass Index 33.78 01/19/2019 1:53 PM CDT documented in this encounter Progress Notes Michelle Isaacs, RD - 05/12/2019 10:00 AM CDT Medical Nutrition Therapy - [id number] Referred by: Keira Atwood MD Problem: morbid obesity; hypothyroidism; PCOS; epilepsy (triggered by extremes, like heat, cold, lack of sleep, blood sugar, stress) HPI This is an initial nutritional assessment for Daiwt Conroy is a 34 year old female. For stress relief, patient will meditate, get epsom salt bath, talk to friends, sometimes will eat comfort food, but it's usually something she has to cook, so sometimes she will eat it, sometimes she won't) Weight history: Patient reports weight struggles since age 21. Patient describes her weight patternas continuous weight gain with some lasting weight loss. Patient notes periods of weight gain were significant after family stress. Previous attempts to lose weight include eating healthier meals. Social history: Patient currently is unemployed. Primary shopping and/or cooking responsibilities in the home rest on the patient. Diet history: Prepares 2 meals per day from scratch. Junk food usually comes in when she's traveling. Family raids the kitchen in the middle of the night, so any fast, convenience healthy foods are eaten. Pasta is her weakness. Diet lately has been chili with wheat berries, more beans, grains, fried rice and peas. When patient is sick, she won't cook and will get takeout instead. Breakfast: coffee (flavored creamer 2 Tbsp) and fruit Lunch: pasta with/non-starchy vegetables (nsv) and sometimes meat, but typically vegetables OR bakedpotato with broccoli and cheese OR sweet potato with salsa OR burrito bowl (brown rice, spicy andrade beans, salsa, shredded cheese, jalapeno, cilantro) Dinner: salad with chicken or fish OR stir brandon OR soup with meat OR gumbo (with cauliflowered rice) Snack: fresh fruit and vegetables OR hummus and vegetables Water: 56 fl oz daily Activity: Patient is exercising (walking, swimming) 2 hours 5x/week. On her own , she usually moves around more, but living with other people who have vehicles makes her more sedentary. ALLERGIES Allergies Allergen Reactions Morphine Hypertension Darlene (28) [Drospirenone-Ethinyl Estradiol] Unknown - See comments Elevates potassium per patient VITALS Wt 203 lb (92.1 kg) | BMI 33.78 kg/m Wt Readings from Last 6 Encounters: 01/19/19 209 lb (94.8 kg) 01/12/19 207 lb (93.9 kg) 11/04/18 201 lb 3.2 oz (91.3 kg) 10/18/18 204 lb 9.6 oz (92.8 kg) 10/05/18 201 lb 9.6 oz (91.4 kg) 07/20/18 215 lb 9.6 oz (97.8 kg) HISTORIES No past medical history on file. HGB A1C (% NGSP) Date Value 01/12/2019 5.2 CHOL (mg/dL) Date Value 01/12/2019 283 (H) HDL (mg/dL) Date Value 01/12/2019 49 (L) LDL CHOL (mg/dL) Date Value 01/12/2019 Comment: Unable to calculate LDL due to elevated triglyceride level greater than 400 mg /dL. TRIG (mg/dL) Date Value 01/12/2019 612 (H) MEDICATIONS Current Outpatient Medications on File Prior to Visit Medication Sig Dispense Refill OXcarbazepine 300 mg tablet Take 1 tablet by mouth 2 (two) times daily. Also take 1/2 of tablet twice per day. 75 tablet 2 levothyroxine 88 mcg tablet Take 1 tablet by mouth every morning. 30 tablet 2 norgestimate-ethinyl estradiol 0.25-35 mg-mcg per tablet Take 1 tablet by mouth daily. 1 [id number] prazosin 1 mg capsule SERTraline 50 mg tablet Cholecalciferol, Vitamin D3, (VITAMIN D3) 2,000 unit capsule Take by mouth. naproxen 500 mg tablet Take 500 mg by mouth 3 (three) times daily. No current facility-administered medications on file prior to visit. NUTRITIONAL DIAGNOSIS NB-1.1 Food and nutrition related knowledge deficit . NUTRITIONAL INTERVENTION Discussed with the patient weight loss strategies, nutrition and label reading, portion sizes, healthy food choices, importance of hydration, protein and supplements, behavior modification and exercise. Provided patient with written , oral and visual education in weight loss strategies. Currently, weight status likely reflects irregular eating pattern and poor support system for weight loss. Counseled patient on how to eat a more balanced diet, improving mindful eating, proper hydration behaviors, stimulus control, strategies to increase structure in diet and the importance of self-monitoring.All patient questions were answered. Patient verbalized understanding. Goals/Behavior modification chosen to practice for next visit: eat 3 meals daily exercise: add 1 day of strength training increase fruits/vegetables to 50% of meals plate method/portion control MONITORING/EVALUATION Dietitian to follow-up in 3 months or as necessary. Michelle Isaacs RD, LD, CDE Dietitian/Submarine Worker [address] [place] [address] [phone] This visit involved counseling that comprised 60 minutes total time with the patient. MARTY-VAC documented in this encounter Plan of Treatment Date Type Specialty Care Team Description 06/07/2019 Office Visit Rheumatology [facility] [address] [place] [address] [phone] 07/04/2019 Office Visit Endocrinology Diabetes & Keira Atwood, Metabolism 11/01/2019 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 Visit Endocrinology Diabetes & Michelle Isaacs RD Metabolism [address] [place] [address] [phone] Health Maintenance Due Date Last Done Comments VARICELLA VACCINES (1 of 2 - + 1999 2-dose series) DTaP,Tdap,and Td Vaccines ( - 2005 Tdap) INFLUENZA VACCINE 06/19/2019 PAP SMEAR 01/19/2022 01/19/2019 PNEUMOCOCCAL 0-64 YEARS COMBINED Aged Out No longer eligible based on SERIES patient's age to complete this topic documented as of this encounter Results Not on filedocumented in this encounter Visit Diagnoses Diagnosis Class 2 obesity due to excess calories without serious comorbidity with body mass index (BMI) of 37.0 to 37.9 in adult - Primary Weight gain Abnormal weight gain History of PCOS Personal history of other genital system and obstetric disorders Primary hypothyroidism Unspecified hypothyroidism documented in this encounter Insurance Payer Benefit Plan / Subscriber ID Effective Dates Phone Address Type Group [facility] xxxxxxxxx 2017-Present Medicaid COMM PLAN - PLUS MANAGED MEDICAID documented as of this encounter"
--- OUTSIDE RECORDS SUMMARY | 2019-12-24 21:31 | XMS REPORT | Summary of Care ---
:1985 Author Organization [facility] Address [address] [place] [address] Care Team Providers Name Role Phone JairJohn patiño Primary Care Provider Reason for Visit Reason Comments OBESITY Encounter Details Date Type Department Care Team Description 11/29/2019 Greens Tier Visit [facility] Ferny, Michelle, Obesity (BMI 30-39.9 ) (Primary Dx); Endocrinology- RD History of PCOS; [address] Primary hypothyroidism Professional Office [address] [address] [address] Diallo [address] [place], [place] [phone] (Fax) [phone] Allergies Active Allergy Reactions Severity Noted Date Comments Morphine Hypertension 04/27/2017 Drospirenone-Ethinyl Unknown - See comments 06/10/2018 Elevates potassium Estradiol per patient documented as of this encounter (statuses as of 11/29/2019) Medications Medication Sig Dispensed Refills Start Date [...] Take 1 tablet by 30 tablet 2 07/29/2019 Active tabletIndications: mouth every Primary hypothyroidism morning. SERTraline 50 mg Take 1 tablet by 30 tablet 6 10/28/2019 Active tabletIndications: PTSD mouth daily. 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 [...] won't cook and will get takeout instead. Limiting dairy and red meat. Eating mostly plant based diet, but has not seen much change. Still cooking from scratch, but will do fast food 2x/month. Still eating larger portions and is eating meals heavy in carbs. Breakfast: coffee (flavored creamer 2 Tbsp) Lunch: leftovers OR soup or salad or pasta if very hungry (2x/week) - seafood spaghetti, marinara sauce, sardines, mussels OR oatmeal (pumpkin puree, berries , fruit, or pb 2) Dinner: meatless mondays, texmex Thursday, Thursday, throwback , fish Thursday, sicilians, leftover Thursday (legumes and rice OR seafood OR chicken) - will use potatoes, rice, oats,and tortillas, pasta, legumes/beans 3x/ week) Snack: hb eggs, frozen fruit, vegetables and hummus, fruit, sometimes cheese Water: 48-56 fl oz Beverages: coffee, sweet drink on occasion when eating out (a few times a month) , juice recently d/thaving lots of citrus Activity: Patient is exercising (walking, swimming) 2 hours 5x/week. On her own , she usually moves around more, but living with other people who have vehicles makes her more sedentary. Patient states she's doing some cardio, but not strength training. Wt Readings from Last 6 Encounters: 11/29/19 205 lb (93 kg) 10/24/19 209 lb (94.8 kg) 09/06/19 205 lb (93 kg) 07/29/19 205 lb 3.2 oz (93.1 kg) 05/12/19 203 lb (92.1 kg) 01/19/19 209 lb (94.8 kg) HGB A1C (% NGSP) Date Value 01/12/2019 5.2 CHOL (mg/dL) Date Value 01/12/2019 283 (H) HDL (mg/dL) Date Value 01/12/2019 49 (L) LDL CHOL (mg/dL) Date Value 01/12/2019 Comment: Unable to calculate LDL due to elevated triglyceride level greater than 400 mg /dL. TRIG (mg/dL) Date Value 01/12/2019 612 (H) Current Outpatient Medications Medication Sig Dispense Refill SERTraline 50 mg tablet Take 1 tablet by mouth daily. 30 tablet 6 levothyroxine 88 mcg tablet Take 1 tablet by mouth every morning. 30 tablet 2 norgestimate-ethinyl estradiol 0.25-35 mg-mcg per tablet Take 1 tablet by mouth daily. 1 [id number] prazosin 1 mg capsule Cholecalciferol, Vitamin D3, (VITAMIN D3) 2,000 unit capsule Take by mouth. naproxen 500 mg tablet Take 500 mg by mouth 3 (three) times daily. No current facility-administered medications for this visit. NUTRITIONAL DIAGNOSIS NB-1.1 Food and nutrition [...] to 50% of meals plate method/portion control - continue using smaller plate for portion control 1/2 portion of carbs by adding more riced vegetables or spiralized vegetables to make up for decrease in carb MONITORING/EVALUATION Dietitian to follow-up in 3 months or as necessary. Michelle Isaacs RD, LD, CDE Dietitian/Paint Tester [address] [place] [phone] This visit involved counseling that comprised 30 minutes total time with the patient. [id number] documented in this encounter Plan of Treatment Date Type Specialty Care Team Description 02/03/2020 Office Visit Endocrinology Diabetes & [place], Metabolism [address] [place] [address] [place] [address] [phone] 05/03/2020 [place] Tier Visit Endocrinology Diabetes & Michelle Isaacs RD Metabolism [address] [place] [address] [phone] Health Maintenance Due Date Last Done Comments VARICELLA VACCINES (1 of 2 - 1987 2-dose childhood series) DTaP,Tdap,and Td Vaccines ( - 1997 Tdap) INFLUENZA VACCINE (#1) 2019 PAP SMEAR 01/19/2022 01/19/2019 PNEUMOCOCCAL 0-64 YEARS COMBINED Aged Out No longer eligible based on SERIES patient's age to complete this topic documented as of this encounter Results Not on filedocumented in this encounter Visit Diagnoses Diagnosis Obesity (BMI 30-39.9) - Primary Obesity, unspecified History of PCOS Personal history of other genital system and obstetric disorders Primary hypothyroidism Unspecified hypothyroidism documented in this encounter Insurance Payer Benefit Plan / Subscriber ID Effective Dates Phone Address Type Group [facility] xxxxxxxxx 2017-Present Medicaid COMM PLAN - PLUS MANAGED MEDICAID documented as of this encounter
--- OUTSIDE RECORDS SUMMARY | 2019-12-24 21:31 | XMS REPORT | Summary of Care ---
:1985 Author Organization [facility] Address [address] [place] [id number] Care Team Providers Name Role Phone John Gracia Primary Care Provider Reason for Visit Reason Comments Refill Request Encounter Details Date Type Department Care Team Description 11/24/2019 Refill [facility] Felix Wu MD Refill Request Neurology-[address] [place] [phone] [facility] [address] [place] [address] [phone] Allergies Active Allergy Reactions Severity Noted Date Comments Morphine Hypertension 04/27/2017 Drospirenone-Ethinyl Unknown - See comments 06/10/2018 Elevates potassium Estradiol per patient documented as of this encounter (statuses as of 11/24/2019) Medications Medication Sig Dispensed Refills Start Date [...] as of this encounter (statuses as of 11/24/2019) Active Problems Problem Noted Date Obesity (BMI [...] as of this encounter (statuses as of 11/24/2019) Social History Tobacco Use Types Packs/Day Years [...] Treatment Date Type Specialty Care Team Description 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 Visit Endocrinology Diabetes & FernyMichelle jensen, BRETT Metabolism [address] [place] [address] [phone] 02/03/2020 Office Visit Endocrinology Diabetes & [place], [place], Metabolism [address] [place] [address] Dr Parks [address] [place] [address] [phone] Health Maintenance Due Date Last Done Comments VARICELLA VACCINES ( of - 1987 2-dose childhood series) DTaP,Tdap,and Td Vaccines ( - 1997 Tdap) INFLUENZA VACCINE (#1) 2019 PAP SMEAR 01/19/2022 01/19/2019 PNEUMOCOCCAL 0-64 YEARS COMBINED Aged Out No longer eligible based on SERIES patient's age to complete this topic documented as of this encounter Results Not on filedocumented in this encounter Visit Diagnoses Diagnosis Frequent seizures Other convulsions documented in this encounter Insurance Payer Benefit Plan / Subscriber ID Effective Dates Phone Address Type Group [facility] x[facility] 2017-Present Medicaid COMM PLAN - PLUS MANAGED MEDICAID documented as of this encounter
--- OUTSIDE RECORDS SUMMARY | 2019-12-24 21:31 | XMS REPORT | Summary of Care ---
:1985 Author Organization [facility] Address [address] [place] [id number] Care Team Providers Name Role Phone John Gracia Primary Care Provider Reason for Visit Reason Comments Refill Request Encounter Details Date Type Department Care Team Description 12/12/2019 Refill [facility] Endocrinology- [place] Bill MD Refill Request [address] Professional Office [facility] [address] [place] [address] [place] [address] [phone] [facility] [place] [address] Allergies Active Allergy Reactions Severity Noted Date Comments Morphine Hypertension 04/27/2017 Drospirenone-Ethinyl Unknown - See comments 06/10/2018 Elevates potassium Estradiol per patient documented as of this encounter (statuses as of 12/12/2019) Medications Medication Sig Dispensed Refills Start Date End Date Status naproxen 500 mg Take 500 mg 0 Active tablet by mouth 3 (three) times daily. Cholecalciferol, Take by 0 Active Vitamin D3, (VITAMIN mouth. D3) 2,000 unit capsule prazosin 1 mg 0 09/25/2018 Active capsule norgestimate-ethinyl Take 1 tablet 1 Package 11 10/18/2018 Active estradiol 0.25-35 by mouth mg-mcg per tablet daily. SERTraline 50 mg Take 1 tablet 30 tablet 6 10/28/2019 Active tabletIndications: by mouth PTSD (post-traumatic daily. stress disorder) LEVOTHYROXINE 88 mcg TAKE ONE 30 tablet 2 12/12/2019 Active tabletIndications: TABLET BY Primary MOUTH EVERY hypothyroidism MORNING levothyroxine 88 mcg Take 1 tablet 30 tablet 2 07/29/2019 12/12/2019 Discontinued tabletIndications: by mouth Primary every hypothyroidism morning. documented as of this encounter (statuses as [...] Visit Endocrinology Diabetes & [place], Metabolism [address] [place] [address] [address] [place] [address] [phone] 05/03/2020 Program Evaluation Consultant Visit Endocrinology Diabetes & Michelle Isaacs RD Metabolism [address] [place] [address] [phone] Health Maintenance Due Date Last Done Comments VARICELLA VACCINES (1 of - 1987 2-dose childhood series) DTaP,Tdap,and Td Vaccines (1 - 1997 Tdap) INFLUENZA VACCINE (#1) 2019 PAP SMEAR 01/19/2022 01/19/2019 PNEUMOCOCCAL 0-64 YEARS COMBINED Aged Out No longer eligible based on SERIES patient's age to complete this topic documented as of this encounter Results Not on filedocumented in this encounter Visit Diagnoses Diagnosis Primary hypothyroidism Unspecified hypothyroidism documented in this encounter Insurance Payer Benefit Plan / Subscriber ID Effective Dates Phone Address Type Group [facility] xxxxxxxxx 2017-Present Medicaid COMM PLAN - PLUS MANAGED MEDICAID documented as of this encounter
[2019-12-24 22:09] LABS: Basophils % 1.1 % (0-1.3); Hematocrit 42.9 % (36.0-45.0); Lymphocytes % 26.1 % (15.3-44.8); MPV 8.4 fL (7.6-11.3); RBC Red Blood Cell Count 4.84 M/uL (3.86-4.86)
[2019-12-24 22:11] LABS: Protime INR 0.96
[2019-12-24 22:14] LABS: Barbiturates NEGATIVE (NEGATIVE); Benzodiazepines NEGATIVE (NEGATIVE); Cocaine NEGATIVE (NEGATIVE); METHAMPHETAM NEGATIVE (NEGATIVE); Methadone NEGATIVE (NEGATIVE); Opiates NEGATIVE (NEGATIVE); Phencyclidine NEGATIVE (NEGATIVE); THC Cannibis NEGATIVE (NEGATIVE)
[2019-12-24 22:26] LABS: Urine Blood TRACE (NEG); Urine Glucose NEGATIVE (NEG); Urine Protein NEGATIVE (NEG); Urine pH 5.5 (5.0-7.0)
[2019-12-24 22:26] LABS: ALT/SGPT 18 U/L (12-78); AST/SGOT 14 U/L (15-37); Albumin 3.3 g/dL (3.4-5.0); Alkaline Phosphatase 77 U/L (45-117); BUN Blood Urea Nitrogen 15 mg/dL (7-18); Bicarbonate 26 mmol/L (21-32); Bilirubin Direct < 0.1 mg/dL (0-0.2); Bilirubin Total 0.3 mg/dL (0.2-1.0); Glucose Level 90 mg/dL (74-106); Potassium 3.8 mmol/L (3.5-5.1); Protein, Total 8.4 g/dL (6.4-8.2); Sodium Level 139 mmol/L (136-145)
--- NOTE | 2019-12-25 03:29 | ER ---
Nurse's Notes [facility] Name: Dawit Conroy Age: 34 yrs Sex: Female : 1985 Arrival Date: 12/24/2019 Time: 21:31 Bed 17 Private MD: Diagnosis: Suicidal ideations Presentation: 12/23 21:33 Chief complaint: Patient states: Suicidal thoughts for past two hours. No specific ll1 plan, no specific thoughts. Did tell to remove blades from the room so she wouldn't use them. Started new control Sprintex this past week. + history of SI in the past. Coronavirus screen: The patient has NOT traveled to a country currently being monitored by the CDC within the last 14 days. Proceed with normal triage procedures. Ebola Screen: Patient denies travel to an Ebola-affected area in the 21 days before illness onset. Initial Sepsis Screen: Does the patient meet any 2 criteria? No. Patient's initial sepsis screen is negative. Does the patient have a suspected source of infection? No. Patient's initial sepsis screen is negative. Risk Assessment: Do you want to hurt yourself or someone else? Patient reports desire/thoughts of hurting themselves or someone else. Provider notified. 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 - Social history:: Patient/guardian denies using alcohol, street drugs, tobacco products, Patient/guardian denies using The patient lives with family, Smoking status: Patient denies any tobacco usage or history of. - Family history:: not pertinent. Screenin:19 Abuse screen: Denies threats or abuse. Nutritional screening: No deficits noted. vc Tuberculosis screening: No symptoms or risk factors identified. Fall Risk None identified. Assessment: 22:00 General: Appears in no apparent distress. obese, Behavior is cooperative, flat, vc listless. Pain: Denies pain. Neuro: Level of Consciousness is awake, obeys commands, lethargic, listless, Oriented to person, place, time, situation, Appropriate for age. Cardiovascular: Capillary refill < 3 seconds. Respiratory: Airway is patent Respiratory effort is even, unlabored, Respiratory pattern is regular, symmetrical. GI: No signs and/or symptoms were reported involving the gastrointestinal system. : No signs and/or symptoms were reported regarding the genitourinary system. EENT: Eyes nystagmus noted. Derm: Skin temperature is warm. Musculoskeletal: Circulation, motion, and sensation intact. Range of motion: intact in all extremities. 23:15 Reassessment: Patient appears in no apparent distress at this time. Patient and/or [facility] family updated on plan of care and expected duration. Pain level reassessed. Patient is alert, oriented x 3, equal unlabored respirations, skin warm/dry/pink. at bedside, interacting appropriately, spouse supportive Patient denies pain at this time. 23:15 General: Behavior is cooperative, flat, quiet. [facility] 12/24 00:20 Reassessment: Patient appears in no apparent distress at this time. No changes from [facility] previously documented assessment. Patient and/or family updated on plan of care and expected duration. Pain level reassessed. Patient is alert, oriented x 3, equal unlabored respirations, skin warm/dry/pink. watching tv quietly Patient denies pain at this time. 01:14 Reassessment: Patient appears in no apparent distress at this time. No changes from [facility] previously documented assessment. Patient and/or family updated on plan of care and expected duration. Pain level reassessed. Patient is alert, oriented x 3, equal unlabored respirations, skin warm/dry/pink. Patient denies pain at this time. General: Appears in no apparent distress. comfortable, unkempt, Behavior is calm, flat, quiet. 01:45 Reassessment: Patient appears in no apparent distress at this time. No changes from previously documented assessment. Patient and/or family updated on plan of care and expected duration. Pain level reassessed. Patient is alert, oriented x 3, equal unlabored respirations, skin warm/dry/pink. [facility] at bedside evaluating patient. 03:20 Reassessment: Patient appears in no apparent distress at this time. No changes from ch2 previously documented assessment. Patient and/or family updated on plan of care and expected duration. Pain level reassessed. Patient is alert, oriented x 3, equal unlabored respirations, skin warm/dry/pink. at bedside, interaction appropriate Patient denies pain at this time. General: Appears in no apparent distress. comfortable, Behavior is calm, cooperative, flat. Psych: 12/23 22:00 Subjective: Patient's mood is sad, Delusions are denied, Hallucinations are denied vc Having thoughts of suicide. Denies suicidal plan. Objective: Patient is cooperative, using poor eye contact. Interventions: Removed personal items and placed in bag. Patient placed in hospital gown. Searched person for dangerous items. Urine collected and sent for urine drug test. Belonging list filled out. Suicide Risk Assessment: Sad Person Scale: Sex of patient: Female: Score 0 points. Age of patient: Score 1 point if patient 15-34. Depression: Score 1 point if signs of depression are present. Previous Attempt: Score 1 point if patient has previously attempted suicide. Substance Abuse: Score 0 point if patient does not abuse alcohol or drugs. Rational Thinking: Score 0 point if patient has rational thinking. Social Support: Score 0 if social support is present/available. Organized Plan: Score 0 if patient did not have an organized plan in place. Relationship: Score 0 point if patient has a spouse or domestic partner. Chronic Sickness: Score 1 point if patient has illness, chronic, debilitating, or severe. TOTAL POINTS: If total points are 3-4, proposed clinical action is close follow-up/consider hospitalization. Safety Checks: Personal items have been removed. Door is open. Visitors are present. Pt denies substance abuse. Commitment: Patient will be a voluntary commitment. Vital Signs: 21:33 BP 144 / 112; Pulse 60; Resp 16; Temp 97.5; Pulse Ox 96% ; Weight 90.72 kg; Height 5 ll1 ft. 5 in. (165.10 cm); Pain 0/10; 12/24 00:23 BP 125 / 76; Pulse 57; Resp 16; Temp 98.0; Pulse Ox 97% on R/A; Pain 0/10; ch2 12/23 21:33 Body Mass Index 33.28 (90.72 kg, 165.10 cm) ll1 ED Course: 12/23 20:00 Arm band placed on Patient placed in an exam room, Patient's private physician notified.vc 20:00 Patient is placed in psych hold. vc 20:09 Patient has correct armband on for positive identification. Placed in gown. Bed in low vc position. Valuables Given to family. 21:31 Patient arrived in ED. es 21:37 Triage completed. ll1 21:40 Moises Heart MD is Attending Physician. ma2 21:40 Ora Munson, CHARLES is Primary Nurse. vc 22:14 Ora Munson RN is Primary Nurse. vc 23:30 Assisted to bathroom. ch2 23:45 Adult w/ patient. ch2 23:45 Noise minimized. Lights dimmed. Warm blanket given. PO fluids given. ch2 12/24 03:40 No provider procedures requiring assistance completed. IV discontinued, intact, ch2 bleeding controlled, No redness/swelling at site. Pressure dressing applied. Administered Medications: No medications were administered Outcome: 03:27 Discharge ordered by MD. ma2 03:40 Discharged to home ambulatory, with significant other. ch2 03:40 Condition: improved 03:40 Discharge instructions given to patient, Instructed on discharge instructions, follow up and referral plans. Demonstrated understanding of instructions, follow-up care. 03:59 Patient left the ED. ch2 Signatures: Iveth Yates [place] Moises Heart MD MD de2 Zena Marino, CHARLES RN [facility] Ora Munson, CHARLES RN Antonieta Fu RN RN ll1 Corrections: (The following items were deleted from the chart) 12/23 21:40 21:33 Chief complaint: Patient states: Suicidal thoughts for past two hours. No ll1 specific plan, no specific thoughts. Did tell to remove blades from the room so she wouldn't use them. Started new control Sprintex this past week. ll1 23:31 21:39 Arm band placed on Patient placed in an exam room, Patient's private physician vc notified ll1 12/24 00:30 12/23 23:15 Reassessment: Patient appears in no apparent distress at this time. Patient ch2 and/or family updated on plan of care and expected duration. Pain level reassessed. Patient is alert, oriented x 3, equal unlabored respirations, skin warm/dry/pink. Patient denies pain at this time. ch2 12/24 00:31 00:20 Reassessment: Patient appears in no apparent distress at this time. No changes ch2 from previously documented assessment. Patient and/or family updated on plan of care and expected duration. Pain level reassessed. Patient is alert, oriented x 3, equal unlabored respirations, skin warm/dry/pink. Patient denies pain at this time. ch2
--- NOTE | 2019-12-25 03:30 | EDPHYS ---
Physician Documentation [facility] Name: Dawit Conroy Age: 34 yrs Sex: Female : 1985 Arrival Date: 12/24/2019 Time: 21:31 Bed 17 Private MD: ED Physician Moises Heart HPI: 12/24 00:15 This 34 yrs old Female presents to ER via Ambulatory with complaints of ma2 Suicidal Ideation. 00:15 The patient presents to the emergency department with depression. Onset: The ma2 symptoms/episode began/occurred gradually, 1 hour(s) ago. Past psychiatric history: Prior diagnosis: depression. Associated signs and symptoms: Pertinent negatives: chest pain, depression, hallucinations. Severity of symptoms: At their worst the symptoms were very mild in the emergency department the symptoms have resolved. The patient has experienced similar episodes in the past. 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 - Social history:: Patient/guardian denies using alcohol, street drugs, tobacco products, Patient/guardian denies using The patient lives with family, Smoking status: Patient denies any tobacco usage or history of. - Family history:: not pertinent. ROS: 12/24 00:15 Constitutional: Negative for fever, chills, and weight loss. ma2 All other systems are negative. Exam: 00:15 Constitutional: This is a well developed, well nourished patient who is awake, alert, ma2 and in no acute distress. Chest/axilla: Normal chest wall appearance and motion. Nontender with no deformity. No lesions are appreciated. Cardiovascular: Regular rate and rhythm with a normal S1 and S2. No gallops, murmurs, or rubs. Normal PMI, no JVD. No pulse deficits. Respiratory: Lungs have equal breath sounds bilaterally, clear to auscultation and percussion. No rales, rhonchi or wheezes noted. No increased work of breathing, no retractions or nasal flaring. Abdomen/GI: Soft, non-tender, with normal bowel sounds. No distension or tympany. No guarding or rebound. No evidence of tenderness throughout. MS/ Extremity: Pulses equal, no cyanosis. Neurovascular intact. Full, normal range of motion. Neuro: Awake and alert, GCS 15, oriented to person, place, time, and situation. Cranial nerves II-XII grossly intact. Motor strength 5/5 in all extremities. Sensory grossly intact. Cerebellar exam normal. Normal gait. Psych: Awake, alert, with orientation to person, place and time. Behavior, mood, and affect are within normal limits. Vital Signs: 12/23 21:33 BP 144 / 112; Pulse 60; Resp 16; Temp 97.5; Pulse Ox 96% ; Weight 90.72 kg; Height 5 ll1 ft. 5 in. (165.10 cm); Pain 0/10; 12/24 00:23 BP 125 / 76; Pulse 57; Resp 16; Temp 98.0; Pulse Ox 97% on R/A; Pain 0/10; ch2 12/23 21:33 Body Mass Index 33.28 (90.72 kg, 165.10 cm) ll1 MDM: 12/23 21:40 Patient medically screened. al2 12/24 00:15 Differential diagnosis: drug withdrawal. acute psychotic break, depression, psychosis ma2 secondary to non-compliance. Data reviewed: vital signs, nurses notes. Counseling: I had a detailed discussion with the patient and/or guardian regarding: the historical points, exam findings, and any diagnostic results supporting the discharge/admit diagnosis, the presence of at least one elevated blood pressure reading (>120/80) during this emergency department visit, the need for outpatient follow up. Response to treatment: the patient's symptoms have markedly improved after treatment. 03:26 ED course: low risk SI, evaluated by psych facility . al2 12/23 21:41 Order name: Acetaminophen; Complete Time: 00:08 ma2 12/23 21:41 Order name: Basic Metabolic Panel; Complete Time: 00:08 [facility] 12/23 21:41 Order name: CBC with Diff; Complete Time: 00:08 [facility] 12/23 21:41 Order name: ETOH Level; Complete Time: 00:08 [facility] 12/23 21:41 Order name: Hepatic Function; Complete Time: 00:08 [facility] 12/23 21:41 Order name: PT-INR; Complete Time: 00:08 [facility] 12/23 21:41 Order name: Urine Test (obtain specimen); Complete Time: 22:17 [facility] 12/23 21:41 Order name: Ptt, Activated; Complete Time: 00:08 al12/23 21:41 Order name: Salicylate; Complete Time: 00:08 [facility] 12/23 21:41 Order name: Urine Drug Screen; Complete Time: 00:08 [facility] 12/23 21:41 Order name: EKG; Complete Time: 21:42 [facility] 12/23 22:06 Order name: Urine Dipstick--Ancillary (enter results) [facility] 12/23 22:06 Order name: Urine --Ancillary (enter results); Complete Time: 00:08 [facility] 12/23 22:06 Order name: Urine Dipstick-Ancillary; Complete Time: 00:08 [facility] 12/23 21:41 Order name: EKG - Nurse/Tech; Complete Time: 22:17 [facility] 12/23 21:41 Order name: IV Saline Lock; Complete Time: 22:17 [facility] 12/23 21:41 Order name: Labs collected and sent; Complete Time: 22:17 [facility] 12/23 21:41 Order name: Urine Dipstick-Ancillary (obtain specimen); Complete Time: 22:17 al Administered Medications: No medications were administered Disposition: 12/25/19 03:27 Discharged to Home. Impression: Suicidal ideations. - Condition is Stable. - Discharge Instructions: Suicidal Feelings: How to Help Yourself. - Medication Reconciliation Form, Thank You Letter, Antibiotic Education, Prescription Opioid Use form. - Follow up: Private Physician; When: Tomorrow; Reason: Continuance of care. Signatures: Dispatcher [facility] Moises Heart MD MD [facility] Zena Marino RN RN ch2 Ora Munson RN RN vc Antonieta Fu RN RN ll1 Corrections: (The following items were deleted from the chart) 03:59 03:27 12/25/2019 03:27 Discharged to Home. Impression: Suicidal ideations. Condition is ch2 Stable. Forms are Medication Reconciliation Form, Thank You Letter, Antibiotic Education, Prescription Opioid Use. Follow up: Private Physician; When: Tomorrow; Reason: Continuance of care. ma2
[2019-12-25 04:16] VITALS: BP 125/76; TEMP 98; O2SAT 97
--- NOTE | 2019-12-25 06:26 | EKG ---
Test Date: 2019-12-24 Test Time: 21:59:45 Package Delivery Driver: FELIX MEASUREMENT RESULTS: Intervals: Rate: 53 CT: 140 QRSD: 90 QT: 416 QTc: 390 [place]: P: 6 CT: 140 QRS: 38 T: 30 INTERPRETIVE STATEMENTS: Sinus bradycardia Otherwise normal ECG Compared to ECG 09/15/2018 10:36:01 Sinus rhythm no longer present Sinus arrhythmia no longer present Electronically Signed On 12-25-19 06:26:06 CDT by Al Norton
== END 2019-12-25 03:59 | disposition home or self-care (01) ==
LOC: ER 21:28
DX: R45.851 Suicidal ideations (principal); E11.9 Type 2 diabetes mellitus without complications; E03.9 Hypothyroidism, unspecified; F43.10 Post-traumatic stress disorder, unspecified; G40.909 Epilepsy, unspecified, not intractable, without status epilepticus; Z88.5 Allergy status to narcotic agent; Z88.8 Allergy status to other drugs, medicaments and biological substances; Z91.040 Latex allergy status
CPT/HCPCS: 36415; 80048; 80076; 80307; 80320; 80329; 81003; 81025; 85025; 85610; 85730; 93005; 99284